=== PATIENT | female | born 1970 | race Caucasian/White ===

== ENCOUNTER 2016-12-28 11:12 | Emergency (ER) | payer SELFPAY ==
[~2016-12-28] VITALS: Ht 157.5 cm; Wt 85.1 kg
[2016-12-28] MEDS ORDERED: KETOROLAC 30MG/ML VIAL IM ONE (13:30)
[2016-12-28 14:58] VITALS: BP 136/72
== END 2016-12-28 14:59 | disposition home or self-care (01) ==
LOC: ER 13:23
DX: S63.502A Unspecified sprain of left wrist, initial encounter (principal); J45.909 Unspecified asthma, uncomplicated; W19.XXXA Unspecified fall, initial encounter; Y93.9 Activity, unspecified; Y92.9 Unspecified place or not applicable
CPT/HCPCS: 73110; 81025; 96372; 99284; J1885

== ENCOUNTER 2020-11-17 01:45 | Emergency (ER) | payer MEDICAID ==
[~2020-11-17] VITALS: Ht 157.5 cm; Wt 90.0 kg
[2020-11-17] MEDS ORDERED: HYDROCODONE/ACETAMINOPHEN 5/325MG TABLET PO ONE (02:45)
[2020-11-17] MEDS ORDERED: T3 PO (05:03)
[2020-11-17] MEDS ORDERED: IBUP-2029 MT (05:03)
[2020-11-17 05:17] VITALS: BP 111/62
== END 2020-11-17 05:18 | disposition home or self-care (01) ==
LOC: ER 01:45
DX: S16.1XXA Strain of muscle, fascia and tendon at neck level, initial encounter (principal); S39.012A Strain of muscle, fascia and tendon of lower back, initial encounter; S20.219A Contusion of unspecified front wall of thorax, initial encounter; S40.812A Abrasion of left upper arm, initial encounter; M25.512 Pain in left shoulder; R03.0 Elevated blood-pressure reading, without diagnosis of hypertension; J45.909 Unspecified asthma, uncomplicated; V49.49XA Driver injured in collision with other motor vehicles in traffic accident, initial encounter; Y93.89 Activity, other specified; Y92.488 Other paved roadways as the place of occurrence of the external cause
CPT/HCPCS: 71045; 72040; 73030; 73060; 81025; 99284

== ENCOUNTER 2023-01-04 10:27 | Emergency (ER) | payer SELFPAY ==
[~2023-01-04] VITALS: Ht 162.6 cm; Wt 83.0 kg
[~2023-01-04 10:27] MED LIST: IBUP-2029 MT; T3 PO
[2023-01-04] MEDS ORDERED: ALBUTEROL (0.083%) 2.5MG/3ML NEB HHN STA (11:52)
[2023-01-04] MEDS ORDERED: IPRATROPIUM BROMIDE (0.02%) 0.5MG/2.5ML NEB HHN STA (11:52)
[2023-01-04] MEDS ORDERED: PREDNISONE 20MG TABLET PO STA (11:52)
[2023-01-04 12:19] VITALS: PULSE 79; RESP 16; O2SAT 98
[2023-01-04] MEDS ORDERED: ALBU6.7H15 INH (13:41)
[2023-01-04] MEDS ORDERED: P50 MT (13:41)
[2023-01-04 15:06] VITALS: BP 131/76; PULSE 78; RESP 18; TEMP 98.3
== END 2023-01-04 15:07 | disposition home or self-care (01) ==
LOC: ER 10:41
DX: J45.901 Unspecified asthma with (acute) exacerbation (principal)
CPT/HCPCS: 71045; 94644; 99285; J7512; Z7610 ×3

== ENCOUNTER 2023-02-26 15:37 | Emergency (ER) | payer SELFPAY ==
[~2023-02-26] VITALS: Ht 157.5 cm; Wt 80.0 kg
[~2023-02-26 15:37] MED LIST changes: +ALBU6.7H15 INH; +P50 MT
[2023-02-26 15:50] VITALS: BP 138/83; PULSE 78; RESP 16; TEMP 98.2; O2SAT 99
[2023-02-26 22:41] LABS: CLARITY URINE CLOUDY (CLEAR); COLOR URINE YELLOW (YELLOW); GLUCOSE URINE NEGATIVE (NEGATIVE); KETONES URINE TRACE (NEGATIVE); LEUKOCYTE ESTERASE URINE 1+ (NEGATIVE); NITRITE URINE NEGATIVE (NEGATIVE); OCCULT BLOOD URINE NEGATIVE (NEGATIVE); PH URINE 5.5 (4.5-8.0); PROTEIN URINE NEGATIVE (NEGATIVE); SPECIFIC GRAVITY URINE 1.024 (1.005-1.030); UROBILINOGEN URINE 0.2 E.U./dL (0.2-1.0)
[2023-02-26 22:55] LABS: RBC URINE NONE SEEN /hpf (0-2); SQUAMOUS EPITHELIAL CELL URINE FEW /lpf (RARE/1+)
[2023-02-26 22:56] LABS: BACTERIA URINE TRACE
[2023-02-26] MEDS ORDERED: CEPH500C2 MT (23:08)
[2023-02-26] MEDS ORDERED: IBUP-2030 MT (23:08)
== END 2023-02-26 23:30 | disposition home or self-care (01) ==
LOC: ER 15:37
DX: N39.0 Urinary tract infection, site not specified (principal); R07.81 Pleurodynia; J45.909 Unspecified asthma, uncomplicated; Z79.899 Other long term (current) drug therapy
CPT/HCPCS: 71101; 81003; 81025; 99284

== ENCOUNTER 2024-04-12 12:15 | Emergency (ER) | payer MEDICAID ==
[~2024-04-12] VITALS: Ht 157.5 cm; Wt 91.0 kg
[~2024-04-12 12:15] MED LIST changes: +CEPH500C2 MT; +IBUP-2030 MT
[2024-04-12 12:33] VITALS: O2SAT 98
[2024-04-12] MEDS: KETOROLAC 30MG/ML VIAL IM ONE (19:06)
[2024-04-12] MEDS: ACETAMINOPHEN 325MG TABLET PO ONE (19:06)
[2024-04-12] MEDS ORDERED: CYCL5TAB3 MT (19:31)
[2024-04-12] MEDS ORDERED: NAPR-681 MT (19:31)
[2024-04-12 20:07] VITALS: BP 163/84; PULSE 68; RESP 19; TEMP 37; O2SAT 99
== END 2024-04-12 20:06 | disposition home or self-care (01) ==
LOC: ER 12:15
DX: M25.512 Pain in left shoulder (principal); M62.838 Other muscle spasm; J45.909 Unspecified asthma, uncomplicated; Z79.1 Long term (current) use of non-steroidal anti-inflammatories (NSAID); Z79.899 Other long term (current) drug therapy; W19.XXXA Unspecified fall, initial encounter; Y93.89 Activity, other specified; Y92.89 Other specified places as the place of occurrence of the external cause; Y99.8 Other external cause status
CPT/HCPCS: 73030; 96372; 99283; J1885; Z7610; A4565